=== PATIENT | female | born 1995 | race Caucasian/White ===

== ENCOUNTER → 2022-11-07 | Outpatient (CLI) | payer BC, SELFPAY ==
[2022-11-10 08:12] LABS: Chlamydia By Nucleic Acid AMP Negative (Negative); Gonococcus By Nucleic Acid AMP Negative (Negative)
== END | disposition home or self-care (01) ==
PROVIDERS: Referring Provider Registered Nurse; Visit Provider Registered Nurse
DX: Z34.90 Encounter for supervision of normal pregnancy, unspecified, unspecified trimester (principal); Z3A.00 Weeks of gestation of pregnancy not specified
CPT/HCPCS: 87086; 87491; 87591

== ENCOUNTER → 2022-11-29 | Outpatient (CLI) | payer BC, SELFPAY ==
[2022-11-29 13:06] LABS: NATERA MAILED SPECIMEN
[2022-11-29 13:08] LABS: Absolute Lymphocyte Count 2.51 X10^3/uL (0.83-4.51); Absolute Neutrophil Count 9.3 X10^3/uL (2.0-7.7); Basophil# 0.05 X10^3/uL; Basophil% 0.4 % (0-1); Eosinophil# 0.09 X10^3/uL; Eosinophils% 0.7 % (0-5); Hematocrit 37.9 % (37-47); Hemoglobin 12.4 g/dL (12.0-15.0); Lymphocyte # 2.51 X10^3/ul (0.83-4.51); Lymphocyte % 19.6 % (19-41); Mean Corp Hgb Conc 32.7 g/dL (32-36); Mean Corpuscular Volume 85.6 fL (81-99); Mean Platelet Vol. 9.3 fl (6.2-12.0); Monocyte# 0.88 X10^3/uL; Monocyte% 6.9 % (0-10); NRBC Flagged by Analyzer 0 % (0-5); Neutrophil # 9.26 X10^3/uL (2.7-7.7); Neutrophil % 72.1 % (47-70); Platelet Count 372 K/mm3 (150-450); RBC Distribution Width CV 12.8 % (11.6-14.6); RBC Distribution Width SD 40.2 fl (35.1-43.9); Red Blood Count 4.43 M/mm3 (4.2-5.4); White Blood Count 12.8 K/mm3 (4.4-11.0)
[2022-11-29 13:18] LABS: Amphetamine Urine VISTA NEGATIVE (<1000 ng/mL); Barbiturate Urine VISTA NEGATIVE (< 200 ng/mL); Benzodiazepine Urine VISTA NEGATIVE (< 200 ng/mL); Cocaine Urine VISTA NEGATIVE (< 300 ng/mL); Ecstacy Urine VISTA NEGATIVE (< 500 ng/mL); Methadone Urine VISTA NEGATIVE (< 300 ng/mL); PCP Urine VISTA NEGATIVE (< 25 ng/mL); THC Urine VISTA NEGATIVE (< 50 ng/mL); Vista UDS pH Range 5
[2022-11-29 13:24] LABS: Glucose Challenge Gest 1H 50g 119 mg/dL (70-140)
[2022-11-29 14:08] LABS: HIV - WCH Non-Reactive (Nonreactive); Hepatitis B Surface Antigen Non-Reactive (Nonreactive); Hepatitis C Antibody Non-Reactive (Nonreactive); Rubella IgG Reactive (Nonreactive); Syphilis Antibodies Non-reactive
== END | disposition home or self-care (01) ==
LOC: LAB 11:52
PROVIDERS: PCP Nurse Practitioner Family; Referring Provider Registered Nurse; Visit Provider Registered Nurse
DX: Z34.90 Encounter for supervision of normal pregnancy, unspecified, unspecified trimester (principal)
CPT/HCPCS: 36415; 80307; 82950; 85025; 86703; 86762; 86780; 86803; 86850; 86900; 86901; 87340

== ENCOUNTER 2022-12-06 07:45 | Emergency (ER) | payer BC, SELFPAY ==
[2022-12-06 07:46] VITALS: BP 136/87; PULSE 110; RESP 18; TEMP 36.6; O2SAT 100; BMI 41.3
--- NOTE | 2022-12-06 08:02 | EX.ED.DYSGE1 ---
HPI History of Present Illness Chief Complaint: Nausea/Vomiting Narrative Narrative: 27-year-old G1, P0 at approximately 11 weeks gestation presents with nausea and vomiting since 1 AM. She states that she vomits almost every day, however. She has tried vitamin B6 and Unisom, Zofran, and is currently on a suppository of promethazine. She still gets morning sickness. She states she has vomited least once every hour since 1 AM and spit up on the way here to the emergency department. She has had loose stool, but denies any vaginal bleeding or pelvic cramping. She called her GRAPHIC DESIGN ASSISTANT, Dr. Keshia Santos, who told her to come to the emergency department for IV fluids. PFSH PFS Home Medications vits no.126-ferrous fum 28 mg iron-folic acid 800 mcg tablet (Classic ) tab PO 11/07/22 [History Last Taken Unknown] progesterone micronized 100 mg capsule 100 mg PO QAM 11/07/22 [History Last Taken Unknown] promethazine 25 mg rectal suppository 25 mg WY Q6H PRN nausea and vomiting #12 ea 11/07/22 [Rx Last Taken Unknown] Allergy/AdvReac Type Severity Reaction Status Date / Time codiene Allergy Mild Hives Uncoded 11/07/22 14:47 kiwi Allergy Mild Hives Uncoded 11/07/22 14:47 Family History Father Heart disease Mother No problems noted. Grandfather Cancer lung cancer Grandmother Cancer Leukemia Social History adopted: No household members: spouse housing: house current occupational status: employed current occupation: [employer] at current occupational exposures/hazards: No pets and animals: Yes history of recent travel: Yes details: [place] in september out of state: Yes out of country: Yes sexually active: Yes Smoking Status: Former smoker second hand exposure: No quit status: quit date established alcohol intake: former details: social substance use type: marijuana caffeine: No eating out: 1-3 times/week what type of physical activity do you participate in: walking frequency: 1-2 times per week seatbelt use: always do you feel safe at home: Yes additional social history: is Valentino - GM ROS ROS ED ROS Narrative Constitutional: No fever, no chills. HEENT: No sore throat. No neck pain. No loss of vision. No rhinorrhea. Cardiovascular: No chest pain. No palpitations. No pedal edema. Respiratory: No cough, no shortness of breath. Abdominal: No abdominal pain. Positive nausea and vomiting every hour without hematemesis. Positive loose stool. Genitourinary: No dysuria. No hematuria. No pelvic cramping or vaginal bleeding. Musculoskeletal: No myalgias. No arthralgias. Neurologic: No headaches. No dizziness. No lightheadedness. Skin: No rash. No change in color. Psychiatric: No depression. No anxiety. EXAM Physical Exam Narrative Exam Narrative: Afebrile. Vital signs noted. HEENT: Normocephalic. Atraumatic. PERRL, EOMI. Neck soft and supple. No point tenderness or step off. Cardiovascular: Regular rate and rhythm. No murmurs, rubs, or gallops appreciated. Respiratory: No tachypnea. Lungs clear to auscultation bilaterally. Gastrointestinal: Abdomen soft, nontender, with normoactive bowel sounds. No rebound or guarding. Neurological: Awake. Alert. Nonfocal, nonlateralizing. Skin: No rash. Normal color. No pallor. Musculoskeletal: No pedal edema. Full range of motion extremities. Const Vital Signs: 12/06/22 07:46 Temperature 97.8 F Temperature Source Temporal Pulse Rate 110 H Respiratory Rate 18 Blood Pressure 136/87 H Blood Pressure Mean 103 Pulse Ox 100 Oxygen Delivery Method Room Air MDM MDM MDM Narrative Medical decision making narrative: Concern is for hyperemesis gravidarum versus mild dehydration. Lower on the differential is vomiting from a pancreatitis. Given that she is 11 weeks gestation, I feel she is too early for heart rate but I do not feel emergent ultrasound is indicated. She was intermittently tachycardic on examination so she will be bolused IV fluids in the form of normal saline 1 L. I will check a CBC, CMP, lipase, and a UA and be in touch with her GRAPHIC DESIGN ASSISTANT as needed as she states she has an appointment at [facility] this afternoon to see if she needs to stop her progesterone. I reviewed her laboratory work and she has slightly elevated white count of 12.1 which she has had in the past and is nonspecific, patient states that her WBC count is usually 12,000 or 13,000, so I feel it is at her baseline. Hemoglobin normal at 12.6, hematocrit 38.4, platelet count normal at 405. I reviewed her CMP and she has slightly low sodium of 135, she was bolused normal saline 1 L intravenously, potassium normal at 3.5, BUN low at 5 with creatinine normal at 0.63. AST is low at 13 which I also think is nonspecific, normal ALT of 27 and alk phos 61. Urinalysis was obtained and there is no evidence of ketones, no infection, I do not feel antibiotics are indicated. There is 0 WBCs on micro analysis. At this point in time, after a bolus of IV fluids and Zofran, she is feeling improved and states that she feels comfortable with discharge. I will discuss the patient with a retail service representative for Dr. Keshia Santos, and she will follow-up this afternoon at 3:30 PM. Return instructions to the emergency department were reviewed. Disposition is discharged home in stable condition. History & Record Review Discussion w/independent historian: Patient Additional record(s) reviewed:: Prior ED visit and Prior labs Lab Data Attestation: I reviewed the patient's lab results. Labs: Laboratory Results - last 24 hr 12/06/22 12/06/22 07:59 08:27 WBC 12.1 H RBC 4.58 Hgb 12.6 Hct 38.4 MCV 83.8 MCH 27.5 MCHC 32.8 RDW Std Deviation 39.3 RDW Coeff of Ivan 12.9 Plt Count 405 MPV 9.3 Immature Gran % (Auto) 0.300 Neut % (Auto) 74.3 H Lymph % (Auto) 18.0 L [place] % (Auto) 6.8 Eos % (Auto) 0.4 Baso % (Auto) 0.2 Absolute Neuts (auto) 9.0 H Absolute Lymphs (auto) 2.18 Nucleated RBC % 0 Sodium 135 L Potassium 3.5 Chloride 105 Carbon Dioxide 20.0 L Anion Gap 10 BUN 5 L Creatinine 0.63 Estim Creat Clear Calc 130.44 Est GFR (MDRD) Af Amer 146 Est GFR (MDRD) Non-Af 120 BUN/Creatinine Ratio 7.9 L Glucose 97 Calcium 8.9 Total Bilirubin 0.40 AST 13 L ALT 27 Alkaline Phosphatase 61 Total Protein 7.6 Albumin 3.2 Globulin 4.4 H Albumin/Globulin Ratio 0.7 L Lipase 25 Urine Color Yellow Urine Clarity Sl. Cloudy Urine pH 8.0 Ur Specific [place] 1.015 Urine Protein 15 H Urine Glucose (UA) Normal Urine Ketones Negative Urine Occult Blood Negative Urine Nitrite Negative Urine Bilirubin Negative Urine Urobilinogen Normal Ur Leukocyte Esterase Negative Urine RBC 0 SEEN Urine WBC 0 SEEN Ur Squamous Epith Cells 0-5 SEEN Amorphous Sediment 1+ Urine Bacteria 0 SEEN Urine Mucus 0 SEEN Discharge Plan Triage Chief Complaint: Nausea/Vomiting ED Provider: Orion Ortega Dx/Rx/DC Orders Prescriptions: No Action Classic 28 mg iron- 800 mcg tablet PO progesterone micronized 100 mg capsule 100 mg PO QAM Rx Instructions: off 7 days; repeat cycle promethazine 25 mg suppository 25 mg WY Q6H PRN (Reason: nausea and vomiting) Qty: 12 2RF Primary Care Provider: Yue Patel Referrals: Yue Patel, VASCULAR NEUROLOGIST-C [Primary Care Provider] -
[2022-12-06] MEDS: Ondansetron 4 MG/2 ML Vial IV (08:06)
[2022-12-06] MEDS: 0.9% Normal Saline (1000mL) 1,000 ML 999 ML IV (08:06)
[2022-12-06 08:15] LABS: Absolute Lymphocyte Count 2.18 X10^3/uL (0.83-4.51); Basophil# 0.03 X10^3/uL; Basophil% 0.2 % (0-1); Eosinophil# 0.05 X10^3/uL; Eosinophils% 0.4 % (0-5); Hematocrit 38.4 % (37-47); Hemoglobin 12.6 g/dL (12.0-15.0); Lymphocyte # 2.18 X10^3/ul (0.83-4.51); Mean Corp Hgb Conc 32.8 g/dL (32-36); Mean Corpuscular Hgb 27.5 pg (27.0-32.0); Mean Corpuscular Volume 83.8 fL (81-99); Mean Platelet Vol. 9.3 fl (6.2-12.0); Monocyte# 0.82 X10^3/uL; Monocyte% 6.8 % (0-10); NRBC Flagged by Analyzer 0 % (0-5); Neutrophil # 9.02 X10^3/uL (2.7-7.7); Neutrophil % 74.3 % (47-70); Platelet Count 405 K/mm3 (150-450); RBC Distribution Width CV 12.9 % (11.6-14.6); RBC Distribution Width SD 39.3 fl (35.1-43.9); Red Blood Count 4.58 M/mm3 (4.2-5.4); White Blood Count 12.1 K/mm3 (4.4-11.0)
[2022-12-06 08:32] LABS: ALB/GLOB Ratio 0.7 RATIO (0.9-2.4); AST(SGOT) 13 U/L (15-37); Alanine Aminotransfer ALT/SGPT 27 U/L (13-56); Albumin, Serum 3.2 g/dL (3.2-5.0); Alkaline Phosphatase 61 U/L (45-117); Anion Gap 10 (5-15); BUN 5 mg/dL (7-18); BUN/Creat Ratio 7.9 RATIO (10-20); Calcium,Total 8.9 mg/dL (8.5-10.1); Chloride 105 mmol/L (98-107); Creatinine, Serum 0.63 mg/dL (0.55-1.02); EST Glomerular Filtration Rate 120 mL/min (>60); Est Glom Filt Rate - Afr Amer 146 mL/min (>60); Estimated Creatinine Clearance 130.44 ml/min; Globulin 4.4 g/dL (2.2-4.2); Glucose 97 mg/dL (74-106); Lipase 25 U/L (13-75); Potassium 3.5 mmol/L (3.5-5.1); Protein, Total 7.6 g/dL (6.4-8.2); Sodium Level 135 mmol/L (136-145)
[2022-12-06 08:35] LABS: Bacteria 0 SEEN /hpf (None Seen); Mucous, Urine 0 SEEN /hpf (<or=2+); Red Blood Cells-Urine 0 SEEN /hpf (0-5); White Blood Cells 0 SEEN /hpf (0-5)
[2022-12-06 08:40] LABS: Color, Urine Yellow (Yellow); Glucose, Dipstick Normal (Normal); Ketone-Dipstick Negative (Negative); Leukocyte Esterase-Dipstick Negative /ul (Negative); Nitrite-Dipstick Negative (Negative); Occult Blood-Urine Negative /ul (Negative); Protein-Dipstick 15 mg/dl (Negative); Specific Gravity, Urine 1.015 (1.002-1.030); Urine Bilirubin Dipstick Negative (Negative); Urine Clarity Sl. Cloudy (Clear); Urine Urobilinogen Normal (Normal)
[2022-12-06 08:50] LABS: Amorphous Sediment 1+; Squamous Epithelial Cells - UA 0-5 SEEN /hpf (5-10)
== END 2022-12-06 09:50 | disposition home or self-care (01) ==
PROVIDERS: Emergency Provider Emergency Medicine; PCP Nurse Practitioner Family; Visit Provider Emergency Medicine
DX: O21.0 Mild hyperemesis gravidarum (principal); O99.321 Drug use complicating pregnancy, first trimester; F12.90 Cannabis use, unspecified, uncomplicated; Z87.891 Personal history of nicotine dependence; Z3A.11 11 weeks gestation of pregnancy
CPT/HCPCS: 80053; 81001; 83690; 85025; 96374; 99283; A4216; J2405

== ENCOUNTER → 2023-01-03 | Outpatient (CLI) | payer BC, SELFPAY | END | disposition home or self-care (01) | LOC: LABSPEC 15:39 | PROVIDERS: PCP Nurse Practitioner Family; Referring Provider Advanced Practice Midwife; Visit Provider Advanced Practice Midwife | DX: O99.891 Other specified diseases and conditions complicating pregnancy (principal); R30.0 Dysuria; Z3A.00 Weeks of gestation of pregnancy not specified | CPT/HCPCS: 87086 ==

== ENCOUNTER 2023-02-21 11:20 | Outpatient (CLI) | payer BC, SELFPAY ==
[2023-02-21] VITALS (9 sets, daily range): BP systolic 115–122; BP diastolic 66–71; PULSE 73–91; TEMP 36.6; O2SAT 97; BMI 43.3
[2023-02-21] MEDS: 0.9% Saline Lock 10 ML Syringe IV (11:56)
[2023-02-21] MEDS: Acetaminophen 500 MG Tablet 1000 MG PO (12:06)
[2023-02-21 12:17] LABS: Hematocrit 35.3 % (37-47); Hemoglobin 11.5 g/dL (12.0-15.0); Mean Corp Hgb Conc 32.6 g/dL (32-36); Mean Corpuscular Hgb 27.5 pg (27.0-32.0); Mean Corpuscular Volume 84.4 fL (81-99); Mean Platelet Vol. 9.7 fl (6.2-12.0); Platelet Count 359 K/mm3 (150-450); RBC Distribution Width CV 12.9 % (11.6-14.6); RBC Distribution Width SD 39.8 fl (35.1-43.9); Red Blood Count 4.18 M/mm3 (4.2-5.4); White Blood Count 12.6 K/mm3 (4.4-11.0)
[2023-02-21 12:30] LABS: AST(SGOT) 11 U/L (15-37); Alanine Aminotransfer ALT/SGPT 19 U/L (13-56); EST Glomerular Filtration Rate 158 mL/min (>60); Est Glom Filt Rate - Afr Amer 191 mL/min (>60); Estimated Creatinine Clearance 164.35 ml/min; LDH 157 U/L (84-246); Uric Acid 3.5 mg/dL (2.6-6.0)
--- NOTE | 2023-02-21 13:57 | OB.TRI.PN ---
Progress Notes Date of Service: 02/21/23 Progress Note: Patient presents for triage evaluation secondary to elevated bps this am and headache per patient. Had appt in office this am and sent to [facility] for triage FHT: doppler done due to gestaitonal age [place]: no Contractions Assessment and plan: normal pre e labs, and normal bps, reassuring maternal and status patient discharged to home to follow-up in office. to obtain bp cuff through [facility] program. See problem list details for additional plan information. Collaborated with Dr Santos. aware of above assessment and labs/bps. agrees with plan of care Laboratory Studies: Laboratory Tests 02/21/23 Range/Units 11:53 WBC 12.6 H (4.4-11.0) K/mm3 RBC 4.18 L (4.2-5.4) M/mm3 Hgb 11.5 L (12.0-15.0) g/dL Hct 35.3 L (37-47) % MCV 84.4 (81-99) fL MCH 27.5 (27.0-32.0) pg MCHC 32.6 (32-36) g/dL RDW Std Deviation 39.8 (35.1-43.9) fl RDW Coeff of Ivan 12.9 (11.6-14.6) % Plt Count 359 (150-450) K/mm3 MPV 9.7 (6.2-12.0) fl Creatinine 0.50 L (0.55-1.02) mg/dL Estim Creat Clear Calc 164.35 ml/min Est GFR (MDRD) Af Amer 191 (>60) mL/min Est GFR (MDRD) Non-Af 158 (>60) mL/min Uric Acid 3.5 (2.6-6.0) mg/dL AST 11 L (15-37) U/L ALT 19 (13-56) U/L Lactate Dehydrogenase 157 (84-246) U/L Blood Type O POSITIVE Antibody Screen NEGATIVE Charges/Coding Visit Charges Office Visits / Consults: 11741 OV L3 Est Multi Select Codes Urinary/Genital Urinary/Genital CPT Codes: 91006-82 non-stress test Interp Assessment & Plan (1) High blood pressure affecting in second trimester, antepartum: COMMENT: obtain bp cuff from [facility]. call with pressures 140/90. follow up next week (2) Nausea & vomiting: QUALIFIERS: Vomiting type: unspecified Qualified Code(s): R11.2 - Nausea with vomiting, unspecified COMMENT: using zofran, nausea improved (3) History of marijuana use: COMMENT: urine drug screening with nob labs. (4) Obesity: QUALIFIERS: Obesity type: unspecified obesity type Obesity classification: unspecified obesity classification Serious obesity comorbidity presence: without serious comorbidity Qualified Code(s): E66.9 - Obesity, unspecified COMMENT: early glucose nl healthy weight gain (5) Supervision of high-risk : QUALIFIERS: Trimester: second trimester Qualified Code(s): O09.92 - Supervision of high risk , unspecified, second trimester COMMENT: PRR, SHARI 06/27/2023. :Valentino (6) Osteomyelitis: (7) : QUALIFIERS: Weeks of gestation: 22 weeks Qualified Code(s): Z3A.22 - 22 weeks gestation of COMMENT: anatomy nl, repeat in 2 wks for addtnl views, wants nipt/carrier (8) Asthma: COMMENT: well controlled. not used inhaler in year
== END 2023-02-21 13:15 | disposition home or self-care (01) ==
LOC: WPOUT 11:21 → WP 11:21
PROVIDERS: Obstetrics & Gynecology; PCP Nurse Practitioner Family; Referring Provider Advanced Practice Midwife; Visit Provider Advanced Practice Midwife
DX: O99.322 Drug use complicating pregnancy, second trimester (principal); M86.9 Osteomyelitis, unspecified; O99.212 Obesity complicating pregnancy, second trimester; O21.2 Late vomiting of pregnancy; O99.891 Other specified diseases and conditions complicating pregnancy; O99.512 Diseases of the respiratory system complicating pregnancy, second trimester; F12.90 Cannabis use, unspecified, uncomplicated; J45.909 Unspecified asthma, uncomplicated; Z87.891 Personal history of nicotine dependence; Z3A.22 22 weeks gestation of pregnancy
CPT/HCPCS: 36415; 59025; 59050; 82565; 83615; 84450; 84460; 84550; 85027; 86850; 86900; 86901; 99221; A4216; G0378

== ENCOUNTER → 2023-02-21 | Outpatient (CLI) | payer BC, SELFPAY ==
[2023-02-21 11:50] LABS: Protein, Urine (Random) 12.9 mg/dL (<11.9); Protein:Creat Ratio 116 mg/g CRE (0-200)
== END | disposition home or self-care (01) ==
LOC: LABSPEC 11:26
PROVIDERS: PCP Nurse Practitioner Family; Referring Provider Advanced Practice Midwife; Visit Provider Advanced Practice Midwife
DX: O16.2 Unspecified maternal hypertension, second trimester (principal); Z3A.00 Weeks of gestation of pregnancy not specified
CPT/HCPCS: 82570; 84156

== ENCOUNTER → 2023-03-24 | Outpatient (CLI) | payer BC, SELFPAY ==
[2023-03-24 08:19] LABS: Absolute Lymphocyte Count 2.03 X10^3/uL (0.83-4.51); Absolute Neutrophil Count 10.5 X10^3/uL (2.0-7.7); Basophil# 0.03 X10^3/uL; Basophil% 0.2 % (0-1); Eosinophil# 0.03 X10^3/uL; Eosinophils% 0.2 % (0-5); Hematocrit 36.3 % (37-47); Lymphocyte # 2.03 X10^3/ul (0.83-4.51); Lymphocyte % 15.1 % (19-41); Mean Corp Hgb Conc 33.1 g/dL (32-36); Mean Corpuscular Volume 84.6 fL (81-99); Mean Platelet Vol. 9.5 fl (6.2-12.0); Monocyte# 0.84 X10^3/uL; Monocyte% 6.2 % (0-10); NRBC Flagged by Analyzer 0 % (0-5); Neutrophil # 10.47 X10^3/uL (2.7-7.7); Neutrophil % 77.9 % (47-70); Platelet Count 353 K/mm3 (150-450); RBC Distribution Width CV 12.7 % (11.6-14.6); RBC Distribution Width SD 38.8 fl (35.1-43.9); Red Blood Count 4.29 M/mm3 (4.2-5.4); White Blood Count 13.5 K/mm3 (4.4-11.0)
[2023-03-24 08:35] LABS: Glucose Challenge Gest 1H 50g 112 mg/dL (70-140)
[2023-03-24 10:09] LABS: HIV - WCH Non-Reactive (Nonreactive); Syphilis Antibodies Non-reactive
== END | disposition home or self-care (01) ==
LOC: LAB 07:45
PROVIDERS: Obstetrics & Gynecology; PCP Physician Assistant; Referring Provider Advanced Practice Midwife; Visit Provider Advanced Practice Midwife
DX: O09.92 Supervision of high risk pregnancy, unspecified, second trimester (principal); Z3A.23 23 weeks gestation of pregnancy
CPT/HCPCS: 36415; 82950; 85025; 86703; 86780

== ENCOUNTER 2023-04-10 11:50 | Outpatient (CLI) | payer BC, SELFPAY ==
[2023-04-10] VITALS (7 sets, daily range): BP systolic 119–136; BP diastolic 74–84; PULSE 68–80; TEMP 36.8; BMI 45.6
[2023-04-10] MEDS: Lactated Ringers 250 ML 999 ML IV (12:20)
[2023-04-10 13:14] LABS: Hematocrit 32.6 % (37-47); Hemoglobin 10.7 g/dL (12.0-15.0); Mean Corp Hgb Conc 32.8 g/dL (32-36); Mean Corpuscular Hgb 27.4 pg (27.0-32.0); Mean Corpuscular Volume 83.6 fL (81-99); Mean Platelet Vol. 9.9 fl (6.2-12.0); Platelet Count 358 K/mm3 (150-450); RBC Distribution Width CV 12.6 % (11.6-14.6); RBC Distribution Width SD 37.6 fl (35.1-43.9); White Blood Count 12.5 K/mm3 (4.4-11.0)
[2023-04-10 13:22] LABS: AST(SGOT) 8 U/L (15-37); Alanine Aminotransfer ALT/SGPT 12 U/L (13-56); EST Glomerular Filtration Rate 155 mL/min (>60); Est Glom Filt Rate - Afr Amer 187 mL/min (>60); Estimated Creatinine Clearance 239.48 ml/min; Uric Acid 4.3 mg/dL (2.6-6.0)
[2023-04-10 13:26] LABS: Protein, Urine (Random) 19.1 mg/dL (<11.9); Protein:Creat Ratio 115 mg/g CRE (0-200)
--- NOTE | 2023-04-11 00:16 | OB.TRI.HP_ITS ---
HPI - General General Date of Service: 04/10/23 HPI Narrative CHELO GRACIA, is a 27 F who presents at 29 weeks with elevated BP. Maternal Data Information SHARI Calculator Estimated Delivery Date Method Current WG Current Estimate 06/27/23 Ultrasound #1 29w 0d Other Estimates 06/19/23 LMP (Certain) 30w 1d PFSH PFSH Home Medications vits no.126-ferrous fum 28 mg iron-folic acid 800 mcg tablet (Classic ) 1 tab PO 11/07/22 [History Last Taken Unknown] famotidine 20 mg tablet (Acid Controller) 20 mg PO DAILY 02/21/23 [History Last Taken 02/21/23 07:00 20 mg] ondansetron 4 mg disintegrating tablet 4 mg PO Q6H PRN nausea and vomiting #60 tabs 04/06/23 [Rx Last Taken Unknown] Allergy/AdvReac Type Severity Reaction Status Date / Time codeine Allergy Mild Hives Verified 04/10/23 12:11 Food Allergies: Uncoded Allergy Mild Hives Verified 04/10/23 12:11 Family History Father Heart disease Mother No problems noted. Grandfather Cancer lung cancer Grandmother Cancer Leukemia Social History adopted: No household members: spouse housing: house current occupational status: employed current occupation: [employer] at current occupational exposures/hazards: No pets and animals: Yes history of recent travel: Yes details: [place] in september out of state: Yes out of country: Yes sexually active: Yes Smoking Status: Former smoker second hand exposure: No quit status: quit date established alcohol intake: former details: social substance use type: marijuana caffeine: No eating out: 1-3 times/week what type of physical activity do you participate in: walking frequency: 1-2 times per week seatbelt use: always do you feel safe at home: Yes additional social history: is Valentino - Visit Details Expected Delivery Route/Plan Labor Preferences- CB/BF classes: discussed labor support person: [] labor intervention preferences: [] pain management options preferred: [] cut cord/dad catch: [] : wants PP control planned: [] discussed possible routes of delivery and associated risks: [] special requests: [] Plans Covid status: [] Flu vaccine: given Tdap vaccine: given 03/28 Rhogam: [] LARC form signed: [] Problem list reviewed and updated with the most current plan of care details and appropriate orders placed. Relevant counseling for the gestational age provided. Continue routine care and follow up unless otherwise noted in visit notes/problem list details OB Flowsheet Initial Weight: Not Recorded Date -?-?-?-?-?-?-?-?-?-?-?-?- EGA Weight BP Urine Prot -?-?-?-?-?-?-?-?-?-?-?-?- Glucose FHR FuHt Pres Dilation -?-?-?-?-?-?-?-?-?-?-?-?- Effaced St Visit Note 11/07/22 -?-?-?-?-?-?-?-?-?-?-?-?- 6w 6d 266 lb 120/83 -?-?-?-?-?-?-?-?-?-?-?-?- 160 -?-?-?-?-?-?-?-?-?-?-?-?- LC- CRL not c/w LMP. SHARI changed to 06/27/2023. accepts NIPT with carrier. early glucose. 12/06/22 -?-?-?-?-?-?-?-?-?-?-?-?- 11w 0d 266 lb 2 oz 122/85 Nega tive -?-?-?-?-?-?-?-?-?-?-?-?- Negative -?-?-?-?-?-?-?-?-?-?-?-?- KW- no vb/ctx. F HR with handheld US. hyperemesis- was in the ER for fluids. Has tried multiple medications for relief with no success. Zofran pump ordered 01/03/23 -?-?-?-?-?-?-?-?-?-?-?-?- 15w 0d 270 lb 6 oz 124/84 Nega tive -?-?-?-?-?-?-?-?-?-?-?-?- Negative 155 -?-?-?-?-?-?-?-?-?-?-?-?- KW-no vb/ctx. N/ V getting better. having slight discomfort with intercourse. requesting urine culture today-sent. 02/01/23 -?-?-?-?-?-?-?-?-?-?-?-?- 19w 1d 272 lb 122/80 Negative -?-?-?-?-?-?-?-?-?-?-?-?- Negative 152 -?-?-?-?-?-?-?-?-?-?-?-?- MH-Nausea improv ing. NO VB. Good FM. Has rpt US next week 02/21/23 -?-?-?-?-?-?-?-?-?-?-?-?- 22w 0d 277 lb 6 oz 130/90 -?-?-?-?-?-?-?-?-?-?-?-?- -?-?-?-?-?-?-?-?-?-?-?-?- kw- to [facility] stat. c/o headache, lightheadedness and elevated bps this morning. 30+ protein in urine at work yesterday. Referred to for management 03/03/23 -?-?-?-?-?-?-?-?-?-?-?-?- 23w 3d 279 lb 128/84 Negative -?-?-?-?-?-?-?-?-?-?-?-?- Negative 152 24 -?-?-?-?-?-?-?-?-?-?-?-?- kw- no vb/ctx. g ood fm. BPs reviewed. 28 week labs discussed. feeling better this week. 03/28/23 -?-?-?-?-?-?-?-?-?-?-?-?- 27w 0d 290 lb 122/80 Negative -?-?-?-?-?-?--?-?-?-?-?-?- Negative 150 28 -?-?-?-?-?-?-?-?-?-?-?-?- kw- no vb/lof/ct x. good fm. reviewed 28 week labs. kw- no vb/lof/ctx. good fm. reviewed 28 week labs. tdap today NST FHR Rate Baby A Baseline: 130-135 Variability:: Moderate Accelerations:: 15 x 15 Decelerations:: None NST Reactive:: Yes FHR Category:: Category I Uterine Activity:: none Assessment & Plan (1) High blood pressure affecting in second trimester, antepartum: COMMENT: obtain bp cuff from . call with pressures 140/90. follow up next week PLAN: PEC labs negative. f/u in office, safe for d/c home today from . (2) Supervision of high-risk : QUALIFIERS: Trimester: second trimester Qualified Code(s): O09.92 - Supervision of high risk , unspecified, second trimester COMMENT: PRR, SHARI 06/27/2023. :Valentino (3) : QUALIFIERS: Weeks of gestation: 27 weeks Qualified Code(s): Z3A.27 - 27 weeks gestation of COMMENT: anatomy nl, repeat in 2 wks for addtnl views, wants nipt/carrier PLAN: Plan Patient presents for triage evaluation secondary to elevated BP. has bp cuff at home. PEC labs normal. FHT: Moderate variability reactive no decelerations category I tracing [place] [address]: no Contractions Assessment and plan: Reactive NST, reassuring maternal and status patient discharged to home to follow-up in office.. See problem list details for additional plan information. Charges/Coding Procedures Urinary/Genital 52xxx-59xxx: 53267-62 non-stress test Interp
== END 2023-04-10 13:55 | disposition home or self-care (01) ==
LOC: WPOUT 12:05 → WP 12:06
PROVIDERS: PCP Physician Assistant; Referring Provider Registered Nurse; Visit Provider Registered Nurse
DX: O16.3 Unspecified maternal hypertension, third trimester (principal); Z3A.29 29 weeks gestation of pregnancy; Z87.891 Personal history of nicotine dependence
CPT/HCPCS: 96365; 36415; 59025; 59050; 82565; 82570; 84156; 84450; 84460; 84550; 85027; 99221; J7120; G0378

== ENCOUNTER → 2023-04-18 | Outpatient (CLI) | payer BC, SELFPAY ==
[2023-04-18 11:51] LABS: Absolute Lymphocyte Count 2.16 X10^3/uL (0.83-4.51); Absolute Neutrophil Count 10.4 X10^3/uL (2.0-7.7); Basophil# 0.06 X10^3/uL; Basophil% 0.4 % (0-1); Eosinophil# 0.03 X10^3/uL; Eosinophils% 0.2 % (0-5); Hematocrit 36.5 % (37-47); Hemoglobin 11.9 g/dL (12.0-15.0); Lymphocyte # 2.16 X10^3/ul (0.83-4.51); Lymphocyte % 15.8 % (19-41); Mean Corp Hgb Conc 32.6 g/dL (32-36); Mean Corpuscular Hgb 27.6 pg (27.0-32.0); Mean Corpuscular Volume 84.7 fL (81-99); Mean Platelet Vol. 9.9 fl (6.2-12.0); Monocyte# 0.92 X10^3/uL; Monocyte% 6.7 % (0-10); NRBC Flagged by Analyzer 0 % (0-5); Neutrophil # 10.44 X10^3/uL (2.7-7.7); Neutrophil % 76.4 % (47-70); Platelet Count 394 K/mm3 (150-450); RBC Distribution Width CV 12.4 % (11.6-14.6); RBC Distribution Width SD 38.3 fl (35.1-43.9); Red Blood Count 4.31 M/mm3 (4.2-5.4); White Blood Count 13.7 K/mm3 (4.4-11.0)
[2023-04-18 12:47] LABS: ALB/GLOB Ratio 0.6 RATIO (0.9-2.4); AST(SGOT) 7 U/L (15-37); Alanine Aminotransfer ALT/SGPT 13 U/L (13-56); Albumin, Serum 2.9 g/dL (3.2-5.0); Alkaline Phosphatase 88 U/L (45-117); Anion Gap 7 (5-15); BUN 7 mg/dL (7-18); BUN/Creat Ratio 11.8 RATIO (10-20); Chloride 103 mmol/L (98-107); Creatinine, Serum 0.59 mg/dL (0.55-1.02); EST Glomerular Filtration Rate 128 mL/min (>60); Est Glom Filt Rate - Afr Amer 155 mL/min (>60); Globulin 4.5 g/dL (2.2-4.2); Glucose 87 mg/dL (74-106); Potassium 3.9 mmol/L (3.5-5.1); Protein, Total 7.4 g/dL (6.4-8.2); Sodium Level 132 mmol/L (136-145); Uric Acid 4.4 mg/dL (2.6-6.0)
[2023-04-18 15:37] LABS: Protein, Urine (Random) < 6.0 mg/dL (<11.9); Protein:Creat Ratio 135 mg/g CRE (0-200)
== END | disposition home or self-care (01) ==
PROVIDERS: PCP Physician Assistant; Referring Provider Obstetrics & Gynecology; Visit Provider Obstetrics & Gynecology
DX: O16.2 Unspecified maternal hypertension, second trimester (principal); Z3A.00 Weeks of gestation of pregnancy not specified
CPT/HCPCS: 36415; 80053; 82570; 84156; 84550; 85025

== ENCOUNTER → 2023-04-19 | Outpatient (CLI) | payer BC, SELFPAY ==
--- NOTE | 2023-04-19 15:10 | US_ITS ---
STUDY: SECOND AND THIRD TRIMESTER OBSTETRICAL ULTRASOUND - LIMITED REASON FOR EXAM: Female, 27 years old growth/ HTN LMP: September 12, 2022. PRIOR ULTRASOUND: None. TECHNIQUE: Transabdominal TECHNICAL QUALITY: Adequate. FINDINGS: There is a single intrauterine fetus. The fetus is in a cephalic presentation. There is demonstrated cardiac activity with a heart rate of 143 bpm. There is a normal amniotic fluid volume. The largest amniotic fluid pocket measures 5.9 cm. The amniotic fluid index (OSCAR) is 13.8 cm. The placenta is posterior in location and is not low lying. There are Grade 0 placental changes. The cervical length was not measured due to the head position. BIOMETRY: BPD: 8.17 cm: 32 weeks, 6 days HC: 29.14 cm: 32 weeks, 1 days AC: 28.5 cm: 32 weeks, 4 days FL: 5.72 cm: 30 weeks, 0 days Age by LMP: 31 weeks, 3 days. SHARI by LMP: June 19, 2023 age by current US: 31 weeks, 5 days. SHARI by current US: June 16, 2023. Estimated weight: 1862 grams, +/- 279 grams, 59 percentile. IMPRESSION: Single live uterine gestation with mean gestational age of 31 weeks and 5 days. Electronically Signed: Jerome Rivera MD at 8:12 EST , STUDY: OBSTETRICAL ULTRASOUND - BIOPHYSICAL PROFILE REASON FOR EXAM: Female, 27 years old growth/ HTN LMP: September 12, 2022. PRIOR ULTRASOUND: None. TECHNIQUE: Transabdominal TECHNICAL QUALITY: Adequate. FINDINGS: BIOPHYSICAL PROFILE: Breathing Movements (FBM): 2 Gross Body Movements (GBM): 2 Tone (FT): 2 Amniotic Fluid Volume (AFV): 2 TOTAL SCORE: US/OB Limited With Biometrics IMPRESSION: Normal biophysical profile of 10/18. Electronically Signed: Jerome Rivera MD at 8:13 EST ,
== END | disposition home or self-care (01) ==
PROVIDERS: PCP Physician Assistant; Referring Provider Obstetrics & Gynecology; Visit Provider Obstetrics & Gynecology
DX: O16.2 Unspecified maternal hypertension, second trimester (principal); Z3A.00 Weeks of gestation of pregnancy not specified
CPT/HCPCS: 76816; 76819

== ENCOUNTER 2023-04-23 16:25 | Outpatient (CLI) | payer BC, SELFPAY ==
[2023-04-23] VITALS (14 sets, daily range): BP systolic 115–137; BP diastolic 61–85; PULSE 67–107; TEMP 36.3–36.6; O2SAT 95–98; BMI 45.6
[2023-04-23] MEDS: 0.9% Saline Lock 10 ML Syringe IV (17:00)
[2023-04-23 17:18] LABS: Hematocrit 34.7 % (37-47); Hemoglobin 11.4 g/dL (12.0-15.0); Mean Corp Hgb Conc 32.9 g/dL (32-36); Mean Corpuscular Hgb 27.4 pg (27.0-32.0); Mean Corpuscular Volume 83.4 fL (81-99); Mean Platelet Vol. 9.8 fl (6.2-12.0); Platelet Count 365 K/mm3 (150-450); RBC Distribution Width CV 12.6 % (11.6-14.6); RBC Distribution Width SD 38.5 fl (35.1-43.9); Red Blood Count 4.16 M/mm3 (4.2-5.4)
[2023-04-23 17:47] LABS: Protein, Urine (Random) < 6.0 mg/dL (<11.9); Protein:Creat Ratio 204 mg/g CRE (0-200)
[2023-04-23 17:48] LABS: ALB/GLOB Ratio 0.6 RATIO (0.9-2.4); AST(SGOT) 11 U/L (15-37); Alanine Aminotransfer ALT/SGPT 9 U/L (13-56); Albumin, Serum 2.8 g/dL (3.2-5.0); Alkaline Phosphatase 84 U/L (45-117); Anion Gap 9 (5-15); BUN 6 mg/dL (7-18); BUN/Creat Ratio 10.9 RATIO (10-20); Calcium,Total 9.1 mg/dL (8.5-10.1); Chloride 105 mmol/L (98-107); Creatinine, Serum 0.55 mg/dL (0.55-1.02); EST Glomerular Filtration Rate 140 mL/min (>60); Est Glom Filt Rate - Afr Amer 170 mL/min (>60); Estimated Creatinine Clearance 217.91 ml/min; Globulin 4.5 g/dL (2.2-4.2); Glucose 89 mg/dL (74-106); LDH 140 U/L (84-246); Potassium 3.8 mmol/L (3.5-5.1); Protein, Total 7.3 g/dL (6.4-8.2); Sodium Level 137 mmol/L (136-145)
--- NOTE | 2023-04-23 18:05 | US_ITS ---
STUDY: OBSTETRICAL ULTRASOUND - BIOPHYSICAL PROFILE REASON FOR EXAM: Female, 27 years old. variables traced- well being PRIOR ULTRASOUND: None. TECHNIQUE: Transabdominal TECHNICAL QUALITY: Adequate. FINDINGS: There is a single intrauterine fetus. The fetus is in a cephalic presentation. There is demonstrated cardiac activity with a heart rate of 135 bpm. There is a normal amniotic fluid volume. The largest amniotic fluid pocket measures 4.1 cm. The amniotic fluid index (OSCAR) is 11.9 cm. The placenta is posterior in location and is not low lying. There are Grade 1 placental changes. Age by LMP: 31 weeks, 6 days. SHARI by LMP: 4.8.24. . BIOPHYSICAL PROFILE: Breathing Movements (FBM): 2 Gross Body Movements (GBM): 2 Tone (FT): 2 Amniotic Fluid Volume (AFV): 2 TOTAL SCORE: 8 / 8 US/Biophysical Prof W/O Non Stres IMPRESSION: Normal biophysical profile of 8/8. There is a single live intrauterine with a heart rate of 135 bpm. Electronically Signed: Myke Cazares MD at 20:30 EST ,
[2023-04-23 18:31] LABS: Uric Acid 4.5 mg/dL (2.6-6.0)
[2023-04-23] MEDS: Acetaminophen 500 MG Tablet 1000 MG PO (18:56)
[2023-04-23] MEDS: oxyCODONE 5 MG Tablet PO (19:46)
--- NOTE | 2023-04-23 22:31 | OB.TRI.HP_ITS ---
HPI - General HPI Narrative CHELO GRACIA, is a 27 y/o @ 31 weeks 5 days who presents to L&D with the compliant of not feeling well. Pt has been having headaches on and off for several weeks without visual changes. She is monitoring bp's at home with a hospital cuff and at times has bp's 140'/90's. She is taking 200 labetalol tid. Maternal Data Information SHARI Calculator Estimated Delivery Date Method Current WG Current Estimate 06/19/23 LMP (Certain) 32w 2d Other Estimates 06/27/23 Ultrasound #1 31w 1d PFSH PFSH Medical History Chest pain Home Medications vits no.126-ferrous fum 28 mg iron-folic acid 800 mcg tablet (Classic ) 1 tab PO DAILY 11/07/22 [History Last Taken 04/22/23 20:00 1 TAB] famotidine 20 mg tablet (Acid Controller) 20 mg PO DAILY 02/21/23 [History Last Taken 04/23/23 13:00 20 mg] labetalol 200 mg tablet 200 mg PO TID #90 tabs 04/25/23 [Rx Last Taken Unknown] ondansetron 4 mg disintegrating tablet 4 mg PO Q6H PRN nausea and vomiting 30 days #120 tabs 04/25/23 [Rx Last Taken Unknown] promethazine 12.5 mg tablet 12.5 mg PO Q6H PRN nausea and vomiting #90 tabs 04/25/23 [Rx Last Taken Unknown] Allergy/AdvReac Type Severity Reaction Status Date / Time codeine Allergy Mild Hives Verified 04/25/23 13:35 Food Allergies: Uncoded Allergy Mild Hives Verified 04/25/23 13:35 Family History Father Heart disease Mother No problems noted. 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 current occupational exposures/hazards: No pets and animals: Yes history of recent travel: Yes details: cancun in september out of state: Yes out of country: Yes sexually active: Yes Smoking Status: Former smoker second hand exposure: No quit status: quit date established alcohol intake: former details: social substance use type: marijuana caffeine: No eating out: 1-3 times/week what type of physical activity do you participate in: walking frequency: 1-2 times per week seatbelt use: always do you feel safe at home: Yes 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 Relevant counseling for the gestational age provided. Continue routine care and follow up unless otherwise noted in visit notes/problem list details OB Flowsheet Initial Weight: Not Recorded Date -?-?-?-?-?-?-?-?-?-?-?-?- EGA Weight BP Urine Prot -?-?-?-?-?-?-?-?-?-?-?-?- Glucose FHR FuHt Pres Dilation -?-?-?-?-?-?-?-?-?-?-?-?- Effaced St Visit Note 11/07/22 -?-?-?-?-?-?-?-?-?-?-?-?- 8w 0d 266 lb 120/83 -?-?-?-?-?-?-?-?-?-?-?-?- 160 -?-?-?-?-?-?-?-?-?-?-?-?- LC- CRL not c/w LMP. SHARI changed to 06/27/2023. accepts NIPT with carrier. early glucose. 12/06/22 -?-?-?-?-?-?-?-?-?-?-?-?- 12w 1d 266 lb 2 oz 122/85 Nega tive -?-?-?-?-?-?-?-?-?-?-?-?- Negative -?-?-?-?-?-?-?-?-?-?-?-?- KW- no vb/ctx. F HR with handheld US. hyperemesis- was in the ER for fluids. Has tried multiple medications for relief with no success. Zofran pump ordered 01/03/23 -?-?-?-?-?-?-?-?-?-?-?-?- 16w 1d 270 lb 6 oz 124/84 Nega tive -?-?-?-?-?-?-?-?-?-?-?-?- Negative 155 -?-?-?-?-?-?-?-?-?-?-?-?- KW-no vb/ctx. N/ V getting better. having slight discomfort with intercourse. requesting urine culture today-sent. 02/01/23 -?-?-?-?-?-?-?-?-?-?-?-?- 20w 2d 272 lb 122/80 Negative -?-?-?-?-?-?-?-?-?-?-?-?- Negative 152 -?-?-?-?-?-?-?-?-?-?-?-?- MH-Nausea improv ing. NO VB. Good FM. Has rpt US next week 02/21/23 -?-?-?-?-?-?-?-?-?-?-?-?- 23w 1d 277 lb 6 oz 130/90 -?-?-?-?-?-?-?-?-?-?-?-?- -?-?-?-?-?-?-?-?-?-?-?-?- kw- to wp stat. c/o headache, lightheadedness and elevated bps this morning. 3 0+ protein in urine at work yesterday. Referred to for management 03/03/23 -?-?-?-?-?-?-?-?-?-?-?-?- 24w 4d 279 lb 128/84 Negative -?-?-?-?-?-?-?-?-?-?-?-?- Negative 152 24 -?-?-?-?-?-?-?-?-?-?-?-?- kw- no vb/ctx. g omita fm. BPs reviewed. 28 week labs discussed. feeling better this week. 03/28/23 -?-?-?-?-?-?-?--?-?-?-?-?- 28w 1d 290 lb 122/80 Negative -?-?-?-?-?-?-?-?-?-?-?-?- Negative 150 28 -?-?-?-?-?-?-?-?-?-?-?-?- kw- no vb/lof/ct x. good fm. reviewed 28 week labs. kw- no vb/lof/ctx. allie fm. reviewed 28 week labs. tdap today 04/18/23 -?-?-?-?-?-?-?-?-?-?-?-?- 31w 1d 292 lb 8 oz 129/85 -?-?-?-?-?-?-?-?-?--?-?-?- 145 32 -?-?-?-?-?-?-?-?-?-?-?-?- JV- c/o severe h eadaches over the weekend and elevated pressures. plan for weekly pih labs, weekly bpp's, and monthly growth scans. 04/25/23 -?-?-?-?-?-?-?-?-?-?-?-?- 32w 1d 292 lb 130/85 -?-?-?-?-?-?-?-?-?-?-?-?- 145 34 -?-?-?-?-?-?-?-?-?-?-?-?- SM- being seen t wice weekly, has bpp tomorrow still having intermittent headaches, worse when working. recommend taking off work for the rest of the due to complications with elevate dbps and headaches. reviewed preecampsia precautions. labs ordered now. SM- being seen twice weekly, has bpp tomorrow still having intermittent headaches, worse when working. recommend taking off work for the rest of the due to complications with elevate dbps and headaches. reviewed preecampsia precautions. labs ordered now. no clonus 2+ reflexes. ROS Constitutional Constitutional: Reports systems reviewed and no addt'l complaints, except as documented Gastrointestinal Gastrointestinal: Denies bloating, constipation, cramping, diarrhea, nausea or vomiting Genitourinary Genitourinary: Reports other Details: Denies vaginal odor, vaginal bleeding, or vaginal discharge ; Denies difficulty urinating or flank pain NST FHR Rate Baby A Baseline: 140 Variability:: Moderate Accelerations:: 15 x 15 Decelerations:: None NST Reactive:: Yes FHR Category:: Category I Assessment & Plan (1) High blood pressure affecting in second trimester, antepartum: COMMENT: Patient thinks this is chronic. doing bp cuff with griselda start growth scans q month and weekly bpp weekly PIH labs. 04/19/23 NL currently on 200 mg labetalol tid (2) Nausea & vomiting: QUALIFIERS: Vomiting type: unspecified Qualified Code(s): R11.2 - Nausea with vomiting, unspecified COMMENT: using zofran, nausea improved (3) History of marijuana use: COMMENT: urine drug screening with nob labs. (4) Obesity: QUALIFIERS: Obesity classification: unspecified obesity classification Obesity type: unspecified obesity type Serious obesity comorbidity presence: without serious comorbidity Qualified Code(s): E66.9 - Obesity, unspecified COMMENT: early glucose nl healthy weight gain (5) Supervision of high-risk : QUALIFIERS: Trimester: second trimester Qualified Code(s): O09.92 - Supervision of high risk , unspecified, second trimester COMMENT: PRR, SHARI 06/27/2023. :Valentino (6) Osteomyelitis: (7) : QUALIFIERS: Weeks of gestation: 32 weeks Qualified Code(s): Z3A.32 - 32 weeks gestation of COMMENT: anatomy nl, repeat in 2 wks for addtnl views, wants nipt/carrier (8) Asthma: COMMENT: well controlled. not used inhaler in year PLAN: Plan labs are all normal and bp's are not in severe range headache resolved with 1 5mg pecocet plan to continue watching closely with twice weekly testing keep cardiology appt on . Charges/Coding Multi Select Codes Urinary/Genital Urinary/Genital CPT Codes: 21113-48 non-stress test Interp
== END 2023-04-23 20:59 | disposition home or self-care (01) ==
LOC: WPOUT 16:32 → WP 16:33
PROVIDERS: PCP Physician Assistant; Referring Provider Obstetrics & Gynecology; Visit Provider Obstetrics & Gynecology
DX: O16.3 Unspecified maternal hypertension, third trimester (principal); M86.9 Osteomyelitis, unspecified; O21.2 Late vomiting of pregnancy; O99.213 Obesity complicating pregnancy, third trimester; O99.891 Other specified diseases and conditions complicating pregnancy; O99.513 Diseases of the respiratory system complicating pregnancy, third trimester; J45.909 Unspecified asthma, uncomplicated; Z3A.31 31 weeks gestation of pregnancy; Z87.891 Personal history of nicotine dependence
CPT/HCPCS: 36415; 59025; 59050; 76819; 80053; 82570; 83615; 84156; 84550; 85027; 87811; 99221; A4216; G0378

== ENCOUNTER → 2023-04-25 | Outpatient (CLI) | payer BC, SELFPAY ==
[2023-04-25 16:08] LABS: Absolute Lymphocyte Count 1.77 X10^3/uL (0.83-4.51); Absolute Neutrophil Count 9.4 X10^3/uL (2.0-7.7); Basophil# 0.03 X10^3/uL; Basophil% 0.3 % (0-1); Eosinophil# 0.02 X10^3/uL; Eosinophils% 0.2 % (0-5); Hematocrit 35.2 % (37-47); Hemoglobin 11.4 g/dL (12.0-15.0); Lymphocyte # 1.77 X10^3/ul (0.83-4.51); Lymphocyte % 14.8 % (19-41); Mean Corp Hgb Conc 32.4 g/dL (32-36); Mean Corpuscular Hgb 27.3 pg (27.0-32.0); Mean Corpuscular Volume 84.2 fL (81-99); Mean Platelet Vol. 10.1 fl (6.2-12.0); Monocyte# 0.74 X10^3/uL; Monocyte% 6.2 % (0-10); NRBC Flagged by Analyzer 0 % (0-5); Neutrophil # 9.36 X10^3/uL (2.7-7.7); Neutrophil % 78.1 % (47-70); Platelet Count 375 K/mm3 (150-450); RBC Distribution Width CV 12.7 % (11.6-14.6); RBC Distribution Width SD 38.2 fl (35.1-43.9); Red Blood Count 4.18 M/mm3 (4.2-5.4)
[2023-04-25 16:58] LABS: ALB/GLOB Ratio 0.6 RATIO (0.9-2.4); AST(SGOT) 12 U/L (15-37); Alanine Aminotransfer ALT/SGPT 13 U/L (13-56); Albumin, Serum 2.9 g/dL (3.2-5.0); Alkaline Phosphatase 87 U/L (45-117); Anion Gap 9 (5-15); BUN 8 mg/dL (7-18); BUN/Creat Ratio 13.2 RATIO (10-20); Calcium,Total 9.2 mg/dL (8.5-10.1); Chloride 105 mmol/L (98-107); Creatinine, Serum 0.61 mg/dL (0.55-1.02); EST Glomerular Filtration Rate 125 mL/min (>60); Est Glom Filt Rate - Afr Amer 152 mL/min (>60); Globulin 4.6 g/dL (2.2-4.2); Glucose 74 mg/dL (74-106); Potassium 3.7 mmol/L (3.5-5.1); Protein, Total 7.5 g/dL (6.4-8.2); Sodium Level 137 mmol/L (136-145)
== END | disposition home or self-care (01) ==
LOC: LAB 14:36
PROVIDERS: PCP Physician Assistant; Referring Provider Obstetrics & Gynecology; Visit Provider Obstetrics & Gynecology
DX: O16.2 Unspecified maternal hypertension, second trimester (principal); Z3A.00 Weeks of gestation of pregnancy not specified
CPT/HCPCS: 36415; 80053; 85025

== ENCOUNTER → 2023-04-26 | Outpatient (CLI) | payer BC, SELFPAY ==
--- NOTE | 2023-04-25 16:17 | OB.TRI.HP_ITS ---
HPI - General General Date of Admission: 04/23/23 HPI Narrative CHELO GRACIA, is a 27 y/o @ 31 weeks 6 days who presents to L&D with elevated blood pressure at home and not feeling well. She has had on and off headaches for a few weeks and is takin 200 tid of labetalol. Maternal Data Information SHARI Calculator Estimated Delivery Date Method Current WG Current Estimate 06/19/23 LMP (Certain) 32w 1d Other Estimates 06/27/23 Ultrasound #1 31w 0d PFSH PFSH Medical History Chest pain Home Medications vits no.126-ferrous fum 28 mg iron-folic acid 800 mcg tablet (Classic ) 1 tab PO DAILY 11/07/22 [History Last Taken 04/22/23 20:00 1 TAB] famotidine 20 mg tablet (Acid Controller) 20 mg PO DAILY 02/21/23 [History Last Taken 04/23/23 13:00 20 mg] labetalol 200 mg tablet 200 mg PO TID #90 tabs 04/25/23 [Rx Last Taken Unknown] ondansetron 4 mg disintegrating tablet 4 mg PO Q6H PRN nausea and vomiting 30 days #120 tabs 04/25/23 [Rx Last Taken Unknown] promethazine 12.5 mg tablet 12.5 mg PO Q6H PRN nausea and vomiting #90 tabs 04/25/23 [Rx Last Taken Unknown] Allergy/AdvReac Type Severity Reaction Status Date / Time codeine Allergy Mild Hives Verified 04/25/23 13:35 Food Allergies: Uncoded Allergy Mild Hives Verified 04/25/23 13:35 Family History Father Heart disease Mother No problems noted. 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 current occupational exposures/hazards: No pets and animals: Yes history of recent travel: Yes details: [place] in september out of state: Yes out of country: Yes sexually active: Yes Smoking Status: Former smoker second hand exposure: No quit status: quit date established alcohol intake: former details: social substance use type: marijuana caffeine: No eating out: 1-3 times/week what type of physical activity do you participate in: walking frequency: 1-2 times per week seatbelt use: always do you feel safe at home: Yes 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 Relevant counseling for the gestational age provided. Continue routine care and follow up unless otherwise noted in visit notes/problem list details OB Flowsheet Initial Weight: Not Recorded Date -?-?-?-?-?-?-?-?-?-?-?-?- EGA Weight BP Urine Prot -?-?-?-?-?-?-?-?-?-?-?-?- Glucose FHR FuHt Pres Dilation -?-?-?-?-?-?-?-?-?-?-?-?- Effaced St Visit Note 11/07/22 -?-?-?-?-?-?-?-?-?-?-?-?- 8w 0d 266 lb 120/83 -?-?-?-?-?-?-?-?-?-?-?-?- 160 -?-?-?-?-?-?-?-?-?-?-?-?- LC- CRL not c/w LMP. SHARI changed to 06/27/2023. accepts NIPT with carrier. early glucose. 12/06/22 -?-?-?-?-?-?--?-?-?-?-?-?- 12w 1d 266 lb 2 oz 122/85 Nega tive -?-?-?-?-?-?-?-?-?-?-?-?- Negative -?-?-?-?-?-?-?-?-?-?-?-?- KW- no vb/ctx. F HR with handheld US. hyperemesis- was in the ER for fluids. Has tried multiple medications for relief with no success. Zofran pump ordered 01/03/23 -?-?-?-?-?-?-?-?-?-?-?-?- 16w 1d 270 lb 6 oz 124/84 Nega tive -?-?-?-?-?-?-?-?-?-?-?-?- Negative 155 -?-?-?-?-?-?-?-?-?-?-?-?- KW-no vb/ctx. N/ V getting better. having slight discomfort with intercourse. requesting urine culture today-sent. 02/01/23 -?-?-?-?-?-?-?-?-?-?-?-?- 20w 2d 272 lb 122/80 Negative -?-?-?-?-?-?-?-?-?-?-?-?- Negative 152 -?-?-?-?-?-?-?-?-?-?-?-?- MH-Nausea improv ing. NO VB. Good FM. Has rpt US next week 02/21/23 -?-?-?-?-?-?-?-?-?-?-?-?- 23w 1d 277 lb 6 oz 130/90 -?-?-?-?-?-?-?-?-?-?-?-?- -?-?-?-?-?-?-?-?-?-?-?-?- kw- to wp stat. c/o headache, lightheadedness and elevated bps this morning. 30+ protein in urine at work yesterday. Referred to for management 03/03/23 -?-?-?-?-?-?-?-?-?-?-?-?- 24w 4d 279 lb 128/84 Negative -?-?-?-?-?-?-?-?-?-?-?-?- Negative 152 24 -?-?-?-?-?-?-?-?-?-?-?-?- kw- no vb/ctx. g ood fm. BPs reviewed. 28 week labs discussed. feeling better this week. 03/28/23 -?-?-?-?-?-?-?-?-?-?-?-?- 28w 1d 290 lb 122/80 Negative -?-?-?-?-?-?-?-?-?-?-?-?- Negative 150 28 -?-?-?-?-?-?-?-?-?-?-?-?- kw- no vb/lof/ct x. good fm. reviewed 28 week labs. kw- no vb/lof/ctx. good fm. reviewed 28 week labs. tdap today 04/18/23 -?-?-?-?-?-?-?-?-?-?-?-?- 31w 1d 292 lb 8 oz 129/85 -?-?-?-?-?-?-?-?-?-?-?-?- 145 32 -?-?-?-?-?-?-?-?-?-?-?-?- JV- c/o severe h eadaches over the weekend and elevated pressures. plan for weekly pih labs, weekly bpp's, and monthly growth scans. 04/25/23 -?-?-?-?-?-?-?-?-?-?-?-?- 32w 1d 292 lb 130/85 -?-?-?-?-?-?-?-?-?-?-?-?- 145 34 -?-?-?-?-?-?-?-?-?-?-?-?- SM- being seen t wice weekly, has bpp tomorrow still having intermittent headaches, worse when working. recommend taking off work for the rest of the due to complications with elevate dbps and headaches. reviewed preecampsia precautions. labs ordered now. SM- being seen twice weekly, has bpp tomorrow still having intermittent headaches, worse when working. recommend taking off work for the rest of the due to complications with elevate dbps and headaches. reviewed preecampsia precautions. labs ordered now. no clonus 2+ reflexes. ROS Constitutional Constitutional: Reports systems reviewed and no addt'l complaints, except as documented Gastrointestinal Gastrointestinal: Denies bloating, constipation, cramping, diarrhea, nausea or vomiting Genitourinary Genitourinary: Reports other Details: Denies vaginal odor, vaginal bleeding, or vaginal discharge ; Denies difficulty urinating or flank pain Physical Exam HEENT normocephalic Resp normal respiratory effort and normal air movement no CVA tenderness Extremity normal to inspection General Extremity: edema bilateral (trace ) NST FHR Rate Baby A Baseline: 140 Variability:: Moderate Accelerations:: 15 x 15 Decelerations:: None NST Reactive:: Yes FHR Category:: Category I Assessment & Plan (1) High blood pressure affecting in second trimester, antepartum: COMMENT: Patient thinks this is chronic. doing bp cuff with griselda start growth scans q month and weekly bpp weekly PIH labs. 04/19/23 NL currently on 200 mg labetalol tid (2) Nausea & vomiting: QUALIFIERS: Vomiting type: unspecified Qualified Code(s): R11.2 - Nausea with vomiting, unspecified COMMENT: using zofran, nausea improved (3) History of marijuana use: COMMENT: urine drug screening with nob labs. (4) Obesity: QUALIFIERS: Obesity type: unspecified obesity type Obesity classification: unspecified obesity classification Serious obesity comorbidity presence: without serious comorbidity Qualified Code(s): E66.9 - Obesity, unspecified COMMENT: early glucose nl healthy weight gain (5) Supervision of high-risk : QUALIFIERS: Trimester: second trimester Qualified Code(s): O09.92 - Supervision of high risk , unspecified, second trimester COMMENT: PRR, SHARI 06/27/2023. :Valentino (6) Osteomyelitis: (7) : QUALIFIERS: Weeks of gestation: 32 weeks Qualified Code(s): Z3A.32 - 32 weeks gestation of COMMENT: anatomy nl, repeat in 2 wks for addtnl views, wants nipt/carrier (8) Asthma: COMMENT: well controlled. not used inhaler in year PLAN: Plan labs are normal and bp's not in severe range percocet x 1 resolved the headache plan to continue close follow up with twice weekly testing keep cardiology appt on Charges/Coding Multi Select Codes Visit Charges Office Visit/Consults: 08596 OV L3 Est 20min Urinary/Genital Urinary/Genital CPT Codes: 56718-58 non-stress test Interp
--- NOTE | 2023-04-26 15:19 | US_ITS ---
STUDY: OBSTETRICAL ULTRASOUND - BIOPHYSICAL PROFILE REASON FOR EXAM: Female, 27 years old well being LMP: 09/12/2022 PRIOR ULTRASOUND: 04/23/2023 TECHNIQUE: Transabdominal TECHNICAL QUALITY: Adequate. FINDINGS: There is a single intrauterine fetus. The fetus is in a cephalic presentation. There is demonstrated cardiac activity with a heart rate of 166 bpm. There is a normal amniotic fluid volume. The largest amniotic fluid pocket measures 3.1 cm. The amniotic fluid index (OSCAR) is 13.2 cm. The placenta is posterior in location and is not low lying. There are Grade 1 placental changes. Age by LMP: 32 weeks, 2 days. SHARI by LMP: 06/29/2023. : . Gender: Probable female BIOPHYSICAL PROFILE: Breathing Movements (FBM): 2 Gross Body Movements (GBM): 2 Tone (FT): 2 Amniotic Fluid Volume (AFV): 2 TOTAL SCORE: US/Biophysical Prof W/O Non Stres IMPRESSION: Normal biophysical profile of 10/18. Electronically Signed: Ishmael Lopez DO at 16:36 EST ,
== END | disposition home or self-care (01) ==
LOC: US 15:18
PROVIDERS: PCP Physician Assistant; Referring Provider Obstetrics & Gynecology; Visit Provider Obstetrics & Gynecology
DX: O16.2 Unspecified maternal hypertension, second trimester (principal); Z3A.00 Weeks of gestation of pregnancy not specified
CPT/HCPCS: 76819

== ENCOUNTER 2024-04-25 16:25 | Emergency (ER) | payer OTHER, SELFPAY ==
[2024-04-25 16:25] VITALS: BP 138/85; PULSE 87; RESP 17; TEMP 36.9; O2SAT 99; BMI 40.0
[2024-04-25 16:27] VITALS: BP 138/85; PULSE 87; RESP 17; TEMP 36.9; O2SAT 99
--- NOTE | 2024-04-25 17:14 | EX.ED.DYSGE1 ---
HPI History of Present Illness Chief Complaint: Wound Detail of Chief Complaint: Concern for cellulitis right breast Informant: patient Onset/Context/Timing Onset: Days (3 days prior to presentation) Context: Sudden Onset Timing: Continuous Quality: 2 wounds right breast medial lower quadrant with lymphangitis Location: Right breast medial lower quadrant Current Severity: Mild Maximum Severity: Mild Worsened by: Patient has skin breakdown and suspect this is the nidus of her infection. Relieved by: Nothing Associated Symptoms Associated Symptoms: Shaking chills Narrative Narrative: Patient is a 28-year-old woman who was seen by Dr. Karo Fuentes. Sent to the ER because of concern for cellulitis was lymphangitis. Patient has reported chills without elevated temperature. Patient has not breast-fed for 8 months. She is not presently . She denies history of medic fever, heart murmur, SBE, mitral prolapse she does not allergic to any antibiotics. Prior similar symptoms: No Recent Illness/Hospitalization: No PFSH PFSH Medical History Chest pain Home Medications ?Medication ?Instructions ?Recorded ?Last Taken ?Type doxycycline monohydrate 100 mg 100 mg PO BID #14 CAPSULES 04/25/24 Unknown Rx capsule escitalopram oxalate 20 mg tablet 20 mg PO DAILY 04/25/24 Unknown History (Lexapro) Allergy/AdvReac Type Severity Reaction Status Date / Time codeine Allergy Mild Hives Verified 04/25/24 16:25 Food Allergies: Uncoded Allergy Mild Hives Verified 04/25/24 16:25 Family History Father Heart disease Mother No problems noted. 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 current occupational exposures/hazards: No pets and animals: Yes history of recent travel: Yes details: [place] in september out of state: Yes out of country: Yes sexually active: Yes Smoking Status: Former smoker second hand exposure: No quit status: quit date established alcohol intake: former details: social substance use type: marijuana caffeine: No eating out: 1-3 times/week what type of physical activity do you participate in: walking frequency: 1-2 times per week seatbelt use: always do you feel safe at home: Yes additional social history: is Valentino - GM ROS ROS ED Constitutional Constitutional ED: Reports chills; Denies fever(s), subjective or sweats Eyes Eyes: Denies blurry vision or change in vision Cardiovascular Cardiovascular: Denies chest pain or palpitations Respiratory/Chest Respiratory/Chest: Denies cough, dyspnea or dyspnea on exertion Gastrointestinal Gastrointestinal: Denies abdominal pain, nausea or vomiting Integumentary Reports abscess and rash EXAM Physical Exam Const Vital Signs: 04/25/24 16:25 04/25/24 16:27 04/25/24 17:27 Temperature 98.4 F 98.4 F 98.4 F Temperature Source Oral Oral Oral Pulse Rate 87 87 87 Respiratory Rate 17 17 16 Blood Pressure 138/85 H 138/85 H 138/85 H Blood Pressure Mean 102 102 102 Pulse Ox 99 99 99 Oxygen Delivery Method Room Air Room Air Room Air Positive well nourished and well developed Constitutional Narrative: BMI is 40.1. Blood pressure slightly elevated. Vital signs are otherwise unremarkable. General Appearance ED: well developed; Negative for pallor HEENT Reports moist mucous membranes HEENT Narrative: Head is atraumatic normocephalic. Ears normal. Eyes PERRL and EOMs intact bilaterally General Eye ED: Negative for pale conjunctiva or scleral icterus Neck no lymphadenopathy and supple Chest Wall Negative for inspection of chest normal Chest Narrative: Nurse editor in chief in room when I performed breast exam. Patient has 2 abraded areas. The more superior medial of the 2 is remarkable for slight fluctuance. There is a lymphangitic streak noted. There is no palpable breast mass. There is no dimpling of the breast. There is no discharge from the nipple. Resp normal respiratory effort and clear to auscultation bilaterally Cardio regular rate, regular rhythm, S1 normal heart sound, S2 normal heart sound and no murmurs Extremity normal to inspection Neuro oriented x3 and CN's II-XII intact bilaterally Sensorium / Orientation: alert Psych mental status grossly normal Skin General Skin Exam: Negative for jaundice or pallor MDM MDM MDM Narrative Medical decision making narrative: Patient with breast abscess with mild cellulitis and lymphangitis. Will obtain consent for I&D of the small abscess. Since patient is not febrile, tachycardic tachypneic in my opinion laboratory testing is not indicated. This can be treated as an outpatient. Management Discussion w/another healthcare provider: Other (Dr. Fuentes did call before patient's arrival. She informed of her concerns.) Procedures Other Procedures Procedure(s): Breast abscess x 2 Patient was consented for I&D. Patient was placed wrist benefits. Patient was anesthetized with 1% lidocaine by local filtration. Incision was made at both areas. Scant amount of. Material from each area. Nurse is applying dressing. Patient received first dose of doxycycline which will cover both strep and staphylococcal infection and specifically MRSA. Discharged home with appropriate home-going instructions. My opinion this can be followed by Dr. Fuentes since it is superficial. Discharge Plan Triage Chief Complaint: Wound ED Provider: Mauricio Rollins Dx/Rx/DC Orders Clinical Impression: Abscess of breast, Lymphangitis Instructions: ED Abscess Incision And Drainage Prescriptions: New doxycycline monohydrate 100 mg capsule 100 mg PO BID Qty: 14 0RF No Action escitalopram oxalate [Lexapro] 20 mg tablet 20 mg PO DAILY Primary Care Provider: [facility] Doctor,Out of Referrals: Myke Velasquez PA [Non-Staff] - 2 Days for wound check Activity Restrictions/Additional Instructions: 1. Keep area clean and dry for the next 48 to 72 hours 2. Take antibiotics until gone Print Language: Setswana Disposition Disposition: Home, Self Care
[2024-04-25 17:27] VITALS: BP 138/85; PULSE 87; RESP 16; TEMP 36.9; O2SAT 99
[2024-04-25] MEDS: Lidocaine 1% (20 ml mdv) 20 ML Vial INFILT (17:28)
[2024-04-25 18:02] VITALS: BP 131/86; PULSE 77; RESP 14; TEMP 37; O2SAT 97
[2024-04-25] MEDS: Doxycycline 100 MG CAPSULE PO (18:06)
== END 2024-04-25 18:08 | disposition home or self-care (01) ==
PROVIDERS: Emergency Provider Emergency Medicine; Referring Provider Emergency Medicine; Visit Provider Emergency Medicine
DX: N61.1 Abscess of the breast and nipple (principal); S20.111A Abrasion of breast, right breast, initial encounter; X58.XXXA Exposure to other specified factors, initial encounter; Z87.891 Personal history of nicotine dependence
CPT/HCPCS: 10060; 99282

== ENCOUNTER → 2024-07-19 | Outpatient (CLI) | payer OTHER, SELFPAY | END | disposition home or self-care (01) | LOC: LABSPEC 11:37 | PROVIDERS: Referring Provider Advanced Practice Midwife; Visit Provider Advanced Practice Midwife | DX: Z12.4 Encounter for screening for malignant neoplasm of cervix (principal) | CPT/HCPCS: 88175; G0145 ==